=== PATIENT | male | born 1980 | race Caucasian/White ===

== ENCOUNTER 2020-09-20 09:59 | Emergency (ER) | payer SELFPAY ==
[~2020-09-20] VITALS: Ht 162.6 cm; Wt 70.0 kg
[2020-09-20 10:05] VITALS: TEMP 97.9
[2020-09-20 10:29] LABS: BASO # 0.1 (0.0-0.2); BASO % 0.8 % (0.0-2.0); EOS # 0.2 (0.0-0.7); EOS % 2.6 % (0-4.0); GRAN # 3.7 (1.4-6.5); GRAN % 57.2 % (42.2-75.2); HEMATOCRIT 45.6 % (42.0-52.0); HEMOGLOBIN 15.9 g/dl (13.5-18.0); LYMPH % 31.6 % (20.0-51.0); MEAN CELL VOLUME 87 fl (80.0-100.0); MEAN CORPUSCULAR HEMOGLOBIN 30 pg (27.0-31.0); MEAN CORPUSCULAR HGB CONC 35 g/dl (33.0-37.0); MEAN PLATELET VOLUME 10.2 fl (7.4-10.4); MONO # 0.5 (0.1-0.6); MONO % 7.6 % (1.7-9.3); PLATELET COUNT 217 K/mm3 (130-400); RED BLOOD COUNT 5.25 M/mm3 (4.20-5.60); REDCELL DISTRIBUTION WIDTH-CV 12.4 % (11.5-14.5)
[2020-09-20 10:41] LABS: ALANINE AMINOTRANSFERASE 25 U/L (4-49); ALBUMIN 4.7 gm/dL (3.5-5.0); ALKALINE PHOSPHATASE 57 U/L (50-136); ANION GAP 9 mmol/L (7-16); AST,SGOT 29 U/L (15-37); BILIRUBIN,TOTAL 0.6 mg/dL (0.0-1.0); BLOOD UREA NITROGEN 13 mg/dL (9-20); C-REACTIVE PROTEIN < 0.5 mg/dL (0.0-0.9); CALCIUM 9.5 mg/dL (8.4-10.2); CARBON DIOXIDE 27 mmol/L (22-30); CHLORIDE 103 mmol/L (98-107); CREATININE, serum 0.94 (0.66-1.25); GLUCOSE 100 mg/dL (74-106); LIPASE 58 U/L (23-300); POTASSIUM 4.1 mmol/L (3.4-5.0); SODIUM 139 mmol/L (137-145)
[2020-09-20 11:05] LABS: COLLECTION METHOD CLEAN CATCH
[2020-09-20 11:13] LABS: MUCOUS Present /lpf; PH 6 (5-8); SQUAMOUS EPITHELIAL None Seen /hpf; URINE APPEARANCE Clear; URINE BACTERIA None Seen /hpf; URINE BILIRUBIN Negative (NEGATIVE); URINE BLOOD Negative (NEGATIVE); URINE COLOR Straw; URINE GLUCOSE Negative (NEGATIVE); URINE KETONE Negative (NEGATIVE); URINE LEUKOCYTE ESTERASE Negative (NEGATIVE); URINE NITRATE Negative (NEGATIVE); URINE PROTEIN(semi-quant) Negative (NEGATIVE); URINE RBC None Seen /hpf; URINE UROBILINOGEN Negative (NEGATIVE)
[2020-09-20] MEDS ORDERED: PROTONIX 40MG T40 MG PO (11:30)
[2020-09-20 12:00] VITALS: BP 121/70; PULSE 60
== END 2020-09-20 12:00 | disposition home or self-care (01) ==
LOC: COL.ER 09:59
PROVIDERS: Nurse Practitioner Primary Care
DX: K29.70 Gastritis, unspecified, without bleeding (principal)
CPT/HCPCS: J1885; J2405; J7030

== ENCOUNTER 2020-09-24 18:38 | Emergency (ER) | payer SELFPAY ==
[~2020-09-24] VITALS: Ht 162.6 cm; Wt 73.9 kg
[~2020-09-24 18:38] MED LIST: PROTONIX 40MG T40 MG PO
[2020-09-24 18:52] VITALS: TEMP 97.9
[2020-09-24 19:39] LABS: COLLECTION METHOD CLEAN CATCH
[2020-09-24 19:44] LABS: BASO # 0.1 (0.0-0.2); BASO % 0.9 % (0.0-2.0); EOS # 0.3 (0.0-0.7); EOS % 3.3 % (0-4.0); GRAN # 5.4 (1.4-6.5); GRAN % 63.2 % (42.2-75.2); HEMATOCRIT 45.8 % (42.0-52.0); HEMOGLOBIN 15.8 g/dl (13.5-18.0); LYMPH # 2.2 (1.2-3.4); LYMPH % 25.6 % (20.0-51.0); MEAN CELL VOLUME 88 fl (80.0-100.0); MEAN CORPUSCULAR HEMOGLOBIN 30 pg (27.0-31.0); MEAN CORPUSCULAR HGB CONC 35 g/dl (33.0-37.0); MEAN PLATELET VOLUME 10.2 fl (7.4-10.4); MONO # 0.6 (0.1-0.6); MONO % 6.8 % (1.7-9.3); PLATELET COUNT 218 K/mm3 (130-400); RED BLOOD COUNT 5.23 M/mm3 (4.20-5.60); REDCELL DISTRIBUTION WIDTH-CV 12.2 % (11.5-14.5)
[2020-09-24 19:51] LABS: PH 7 (5-8); SQUAMOUS EPITHELIAL None Seen /hpf; URINE APPEARANCE Clear; URINE BACTERIA None Seen /hpf; URINE BILIRUBIN Negative (NEGATIVE); URINE BLOOD Negative (NEGATIVE); URINE COLOR Colorless; URINE GLUCOSE Negative (NEGATIVE); URINE KETONE Negative (NEGATIVE); URINE LEUKOCYTE ESTERASE Negative (NEGATIVE); URINE NITRATE Negative (NEGATIVE); URINE PROTEIN(semi-quant) Negative (NEGATIVE); URINE RBC 0-2 /hpf; URINE UROBILINOGEN Negative (NEGATIVE); URINE WBC None Seen /hpf
[2020-09-24 20:00] LABS: ALANINE AMINOTRANSFERASE 30 U/L (4-49); ALBUMIN 4.8 gm/dL (3.5-5.0); ALKALINE PHOSPHATASE 65 U/L (50-136); ANION GAP 11 mmol/L (7-16); AST,SGOT 30 U/L (15-37); BILIRUBIN,TOTAL 0.3 mg/dL (0.0-1.0); BLOOD UREA NITROGEN 14 mg/dL (9-20); CALCIUM 9.4 mg/dL (8.4-10.2); CARBON DIOXIDE 28 mmol/L (22-30); CHLORIDE 100 mmol/L (98-107); CREATININE, serum 1.15 (0.66-1.25); GLUCOSE 100 mg/dL (74-106); POTASSIUM 3.8 mmol/L (3.4-5.0); SODIUM 139 mmol/L (137-145); TOTAL PROTEIN 8.2 gm/dL (6.4-8.2)
[2020-09-24 20:03] LABS: C-REACTIVE PROTEIN < 0.5 mg/dL (0.0-0.9)
[2020-09-24] MEDS ORDERED: ZOFRAN ODT4 MG PO (22:28)
[2020-09-24] MEDS ORDERED: NORCO 325 MG-51 TAB PO (22:28)
[2020-09-24 22:58] VITALS: BP 116/87; PULSE 58
== END 2020-09-24 22:58 | disposition home or self-care (01) ==
LOC: COL.ER 18:38
PROVIDERS: Nurse Practitioner Primary Care
DX: R10.32 Left lower quadrant pain (principal)
CPT/HCPCS: Q9967

== ENCOUNTER 2021-01-04 08:21 | Day surgery (SDC) | payer SELFPAY ==
[~2021-01-04] VITALS: Ht 165.1 cm; Wt 69.1 kg
[~2021-01-04 08:21] MED LIST changes: +NORCO 325 MG-51 TAB PO; +ZOFRAN ODT4 MG PO
[2021-01-04] MEDS ORDERED: PROTONIX 40MG T40 MG PO (08:53)
[2021-01-04] MEDS ORDERED: CARAFATE 1GM1 G PO (08:54)
[2021-01-04 08:55] VITALS: BP 116/74; PULSE 48; TEMP 97.5
[2021-01-04] MEDS ORDERED: PROBIOTIC DIGE1 EACH PO (08:55)
[2021-01-04 10:25] VITALS: BP 103/77; PULSE 46; TEMP 97.6
--- NOTE | 2021-01-04 10:25 | NUR ---
Pt to [facility] via cart from [facility]. Pt drowsy, but awake and alert. Pt denies pain or nausea. Brother in room. Juice and muffin given per pt request. Will continue to monitor. Call light within reach.
[2021-01-04 10:40] VITALS: BP 105/74; PULSE 44
--- NOTE | 2021-01-04 10:40 | NUR ---
Pt tolerating food and fluids without diffiuclties. Denies needs. Call light within reach.
[2021-01-04 10:55] VITALS: BP 104/79; PULSE 42
--- NOTE | 2021-01-04 10:55 | NUR ---
IV site discontinued with all parts intact. Discharge instructions reviewed. Pt voices understanding. Pt up to dress. Call light within reach.
--- NOTE | 2021-01-04 11:10 | NUR ---
Pt escorted to private car via wheel chair. Pt accompanied home by his brother.
== END 2021-01-04 11:10 | disposition home or self-care (01) ==
LOC: SDCO 08:21
DX: K21.9 Gastro-esophageal reflux disease without esophagitis (principal); Z20.822 Contact with and (suspected) exposure to COVID-19; Z79.899 Other long term (current) drug therapy
CPT/HCPCS: J2704; J7120